=== PATIENT | female | born 1995 | race Caucasian/White ===

== ENCOUNTER 2021-11-02 22:18 | Emergency (ER) | payer OTHER ==
[2021-11-02 22:29] VITALS: BP 130/88; PULSE 96; TEMP 99.8; BMI 24.9
[2021-11-02] MEDS ORDERED: DEXAMETHASONE 4 MG TABLET (FP) PO ONE (22:29)
[2021-11-02] MEDS ORDERED: diphenhydrAMINE HCL 25 MG CAPSULE (FP) PO ONE ×2 (22:29→22:33)
[2021-11-02] MEDS ORDERED: DEXAMETHASONE 4 MG TABLET (FP) ONE (22:34)
== END 2021-11-02 22:46 | disposition home or self-care (01) ==
LOC: FER 22:18
DX: T78.40XA Allergy, unspecified, initial encounter (principal)
CPT/HCPCS: 99283-25